=== PATIENT | female | born 1960 | race Caucasian/White ===

== ENCOUNTER 2018-06-27 12:22 | Observation (INO) | END 2018-06-28 11:05 | disposition home or self-care (01) ==

== ENCOUNTER → 2018-11-05 | Emergency (ER) | payer OTHER ==
[~2018-11-05] VITALS: Ht 152.4 cm; Wt 63.0 kg
[~2018-11-05] MED LIST: AMOX1TAB10 PO; CETI10CA PO; DOCU-144 PO; FLUT9.9S NASAL; HYDR-3601 PO; LORATADINE 10 MG TAB PO ONE
[2018-11-05 14:49] VITALS: Ht 152.4 cm; Wt 63.0 kg
--- NOTE | 2018-11-05 19:16 | ERD ---
ER Documentation Chief Complaint Chief Complaint headache; left ear pain ; facial pain HPI 58-year-old female with a history of gastritis presenting with complaints of left throat pain, left facial pain, and left-sided headache with pain going to the left ear for the past 5 days. This started after she was at a laundromat and smelled bleach. She states that she is allergic to bleach. She went to see her primary care doctor who prescribed her azithromycin. She has been taking this medication for several days without relief of her symptoms. She complains of a lot of mucus in her throat and congestion with pressure in her face. No associated fever, chills, cough, nasal drainage. No difficulty swallowing. No difficulty speaking. ROS All systems reviewed and are negative except as per history of present illness. Medications Home Meds Active Scripts Fluticasone Propionate (Flonase Allergy Relief) 9.9 Ml Davey.susp, 2 SPRAY NASAL DAILY, #1 BOTTLE TO EACH NOSTRIL Prov:MAILE PATIÑO MD 11/05/18 Cetirizine Hcl* (Zyrtec*) 10 Mg Capsule, 10 MG PO DAILY, #20 TAB Prov:MAILE PATIÑO MD 11/05/18 Amoxicillin/Potassium Clav (Amox-Clav 875-125 mg Tablet) 875-125 mg Tab, 1 TAB PO BID, #14 TAB Prov:ROHIT SON NP 06/28/18 Docusate Sodium* (Colace*) 100 Mg Capsule, 100 MG PO BID, #20 CAP Prov:ROHIT SON NP 06/28/18 Hydrocodone Bit-Acetaminophen (Hydrocodone Bit-APAP) 5-325MG Tablet, 1 TAB PO Q6H PRN for MODERATE PAIN LEVEL 4-6, #14 TAB Prov:ROHIT SON NP 06/28/18 Allergies Allergies: Coded Allergies: No Known Allergies (Verified Allergy, 04/11/12) PMhx/Soc History of Surgery: Yes (c section, appendix) Anesthesia Reaction: No Hx Neurological Disorder: No Hx Respiratory Disorders: No Hx Cardiac Disorders: No Hx Psychiatric Problems: No Hx Miscellaneous Medical Probl: No Hx Alcohol Use: No Hx Substance Use: No Hx Tobacco Use: No Smoking Status: Never smoker FmHx Family History: No diabetes Physical Exam Vitals Vital Signs Date Temp Pulse Resp B/P (MAP) Pulse Ox O2 O2 Flow FiO2 Time Delivery Rate 11/05/18 98.5 70 18 161/93 98 Room Air 19:49 (115) 11/05/18 98.8 72 18 165/96 98 Room Air 19:00 (119) 11/05/18 172/68 15:48 (102) 11/05/18 98.8 90 18 221/94 97 14:49 (136) Physical Exam Const: No acute distress Head: Atraumatic Eyes: Normal Conjunctiva, PERRLA, EOMI ENT: Normal External Ears, Nose and Mouth. Posterior oropharynx without erythema or exudate. No tonsillar swelling or uvular deviation. No stridor. Normal phonation. TMs appear normal bilaterally Neck: Full range of motion. No meningismus.No cervical lymphadenopathy. No JVD. No swelling. Resp: Clear to auscultation bilaterally Cardio: Regular rate and rhythm, no murmurs. 2+ distal pulses in all 4 extremities Abd: Soft, non tender, non distended. Skin: No petechiae or rashes Ext: No cyanosis, or edema Neur: Awake and alert, no facial asymmetry, moving all extremities spontaneously Psych: Normal Mood and Affect Results 24 hrs Current Medications Medications Dose Sig/Nanda Start Time Status Last (Trade) Ordered Route PRN Stop Time Admin Dose Reason Admin Loratadine 10 mg ONCE ONCE 11/05/18 DC 11/05/18 (Claritin) PO 19:30 19:27 11/05/18 19:31 Procedures/MDM Patient is presenting with left-sided facial pain with associated headache and throat pain, possibly secondary to allergic rhinitis and postnasal drip. I have a low suspicion for acute infection. She has no neurologic deficits on exam. I recommended treatment with Zyrtec and Flonase nasal spray for treatment of possible allergies. She was encouraged to return for any worsening symptoms. Patient feels comfortable with this discharge plan. Patient's blood pressure was elevated (>120/80) but appears stable without evidence of hypertension emergency or urgency. The patient was counseled about the risks of hypertension and urged to pursue outpatient monitoring and therapy within a week with their primary care physician. Departure Diagnosis: Primary Impression: Sinusitis, acute Sinusitis location: unspecified location Recurrence: not specified as recurrent Qualified Codes: J01.90 - Acute sinusitis, unspecified Condition: Stable Patient Instructions: Sinus Headache, Sinusitis, No Abx Additional Instructions: Elier rodolfo nina con gupta medico primario si no estas mejorando. Regresa a la kristyn de emergencias si estas empeorando. MAILE PATIÑO MD Nov 05, 2018 19:16
[2018-11-05 19:49] VITALS: BP 161/93; PULSE 70; RESP 18
== END | disposition home or self-care (01) ==
LOC: E/R 14:45
DX: J01.90 Acute sinusitis, unspecified (principal)
CPT/HCPCS: Z7502; Z7610; 99282